=== PATIENT | female | born 1960 | race Hispanic/Latino ===

== ENCOUNTER 2024-05-28 17:51 | Emergency (ER) | payer SELFPAY ==
[~2024-05-28] VITALS: Ht 152.4 cm; Wt 148.8 kg
[2024-05-28] MEDS: KETOROLAC TROMETHAMINE 30 MG/ML VIAL IV STA (19:06)
[2024-05-28] MEDS: SODIUM CHLORIDE 0.9% 1000ML 1,000 ML IV ONE (19:06)
[2024-05-28] MEDS ORDERED: CEFUROXIME500 MG PO (21:13)
[2024-05-28] MEDS ORDERED: NAPROSYN500 MG PO (21:13)
[2024-05-28] MEDS ORDERED: CYCLOBENZAPRINE10 MG PO (21:14)
[2024-05-28 21:15] VITALS: PULSE 70; RESP 20; TEMP 98.2; O2SAT 95
== END 2024-05-28 21:26 | disposition home or self-care (01) ==
LOC: FSED 18:04
DX: M54.50 Low back pain, unspecified (principal); N39.0 Urinary tract infection, site not specified; N26.1 Atrophy of kidney (terminal); K76.0 Fatty (change of) liver, not elsewhere classified; R03.0 Elevated blood-pressure reading, without diagnosis of hypertension; E66.01 Morbid (severe) obesity due to excess calories; Z68.44 Body mass index [BMI] 60.0-69.9, adult
CPT/HCPCS: 74176; 80048; 80076; 81003; 85025; 99284; J0696; J1885; J7030